=== PATIENT | male | born 1970 | race African-American/Black ===

== ENCOUNTER 2024-07-14 09:01 | Emergency (ER) | payer OTHER, SELFPAY ==
[2024-07-14] MEDS ORDERED: Ketorolac Tromethamine 30 MG (1 mL) VIAL ONE (10:31)
[2024-07-14] MEDS ORDERED: predniSONE 20 MG TAB ONE (10:31)
== END 2024-07-14 10:58 | disposition home or self-care (01) ==
LOC: ERS 09:01
DX: M25.422 Effusion, left elbow (principal); M25.722 Osteophyte, left elbow; I10 Essential (primary) hypertension; F17.210 Nicotine dependence, cigarettes, uncomplicated
CPT/HCPCS: 96372; 99283; J1885; J7512

== ENCOUNTER 2024-09-30 02:50 | Emergency (ER) | payer OTHER ==
[2024-09-30 15:58] LABS: Troponin I Less than 0.010 ng/mL (< 0.028)
== END 2024-09-30 16:17 | disposition home or self-care (01) ==
LOC: ERS 02:50
DX: R55 Syncope and collapse (principal); R09.81 Nasal congestion; I10 Essential (primary) hypertension; Z87.891 Personal history of nicotine dependence
CPT/HCPCS: 71045; 84484; 93005